=== PATIENT | male | born 1960 | race Caucasian/White ===

== ENCOUNTER 2018-01-11 10:44 | Emergency (ER) | payer OTHER ==
[~2018-01-11] VITALS: Ht 177.8 cm; Wt 82.6 kg
[2018-01-11] MEDS ORDERED: LISINOPRIL40 M1 PO (11:40)
[2018-01-11] MEDS ORDERED: ASPIRIN81 M4 PO (11:41)
--- NOTE | 2018-01-11 12:04 | ED GENERAL ADULT ---
History of Present Illness General Chief Complaint: Laceration Procedure Stated Complaint: LAC RT HAND Source: patient Exam Limitations: no limitations Vital Signs & Intake/Output Vital Signs & Intake/Output Vital Signs Date Time Temp Pulse Resp B/P B/P Pulse O2 O2 Flow FiO2 Mean Ox Delivery Rate 01/11 1324 98.3 83 16 106/68 97 Room Air 01/11 1127 Room Air 01/11 1046 97.0 80 20 93/66 98 Room Air Allergies Coded Allergies: No Known Allergies (01/11/18) Reconcile Medications Amoxicillin/Clavulanate Potass (Amox-Clav 875-125 MG Tablet) 875 MG-125 MG TABLET 1 TAB PO BID wound ppx Aspirin (Aspirin*) 81 MG TAB.CHEW 1 TAB PO DAILY HEART HEALTH (Reported) Lisinopril 40 MG TABLET 1 TAB PO DAILY HEART (Reported) Triage Note: PT TO ED C/O LAC TO LEFT THUMB FROM SHEET METAL 30 MINS AGO. LAST TETANUS SHOT 2 WEEKS AGO. BLEEDING CONTROLLED. Triage Nurses Notes Reviewed? yes HPI: This is an otherwise healthy 57-year-old male presenting with a laceration to his right thumb. 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 He sliced his thumb on a clean piece of metal. He denies any other injuries or blunt trauma. (Zeke Cardenas MD) Past History Travel History Traveled to [place] past 21 day No Medical History Any Pertinent Medical History? see below for history Cardiovascular: hypertension Surgical History Surgical History: none Psychosocial History What is your primary language Armenian Tobacco Use: Current Not Daily Daily Tobacco Use Amount/Type: =< 4 Cigarettes daily ETOH Use: denies use Illicit Drug Use: denies illicit drug use Family History Hx Contributory? No (Zeke Cardenas MD) Review of Systems Review of Systems Constitutional: Reports: no symptoms. Comments Isolated laceration to the right thumb. Review of systems otherwise negative (Zeke Cardenas MD) Physical Exam Physical Exam General Appearance: well developed/nourished, no apparent distress, alert, comfortable Comments: Patient has a curvilinear 4 cm laceration to the dorsal aspect of the right thumb. Tendons appear intact. Neurovascular intact distally. Bleeding controlled with direct pressure prior to arrival. No foreign body and irrigation and exploration. Core Measures ACS in differential dx? No CVA/TIA Diagnosis: No Sepsis Present: No Sepsis Focused Exam Completed? No (Zeke Cardenas MD) Progress Differential Diagnoses I considered the following diagnoses in my evaluation of the patient: Appears to be isolated laceration. Low suspicion for fracture or foreign body. Low suspicion for nonaccidental trauma or intentional self-harm. Plan of Care: Given patient has intact range of motion no obvious severe tendon laceration or other concerning injury, will repair laceration with sutures, discharged home with prophylactic antibiotics. Following digital block with 1% lidocaine without epinephrine, the wound is repaired with 6 4-0 nylon sutures with good cosmetic result. Also, 1 4-0 dissolvable sutures placed for decrease of skin tension. Patient discharged home with return precautions and follow-up instructions. Initial ED EKG: none (Zeke Cardenas MD) Departure Departure Time of Disposition: 1311 Disposition: HOME OR SELF CARE Condition: Stable Clinical Impression Primary Impression: Laceration of thumb Referrals: Beto Goins MD (PCP/Family) Additional Instructions: Thank you for coming to [facility] today. Please avoid bending your thumb for the next 2-3 days. Following that, use the thumb sparingly until the stitches are out. Please avoid soaking your thumb and water for the next week and avoid getting it somewhat for the next 24 hours. Please monitor your thumb for signs of infection as we discussed. Please return to your doctor in 7-10 days for stitch removal. Return to the emergency department immediately if you develop any worsening pain, fever, swelling, redness, or other signs of infection as we discussed. Departure Forms: Customer Survey General Discharge Information Prescriptions: Current Visit Scripts Amoxicillin/Clavulanate Potass (Amox-Clav 875-125 MG Tablet) 1 TAB PO BID #14 TAB (Zeke Cardenas MD) Resident Co-Sign Statement Statement: ED Attending supervision documentation- [] I saw and evaluated the patient. I have also reviewed all the pertinent lab results and diagnostic results. I agree with the findings and the plan of care as documented in the Resident's documentation. [X] I have reviewed the ED Record and agree with the Resident's documentation. [] Additions or exceptions (if any) to the Resident's note and plan are summarized below: [] (Alisa RINCON,Loco Tiwari) Critical Care Note Critical Care Note Critical Care Time: non-applicable (Zeke Cardenas MD)
[2018-01-11] MEDS ORDERED: AMOX-CLAV 875-1 EACH PO (13:13)
== END 2018-01-11 13:39 ==
LOC: ERH 10:44
DX: S61.011A Laceration without foreign body of right thumb without damage to nail, initial encounter (principal); W45.8XXA Other foreign body or object entering through skin, initial encounter